=== PATIENT | male | born 1935 | race Caucasian/White ===

== ENCOUNTER 2017-08-18 15:39 | Inpatient (IN) | payer MEDICARE, BC ==
--- NOTE | ~2017-08-18 | PN ---
PATIENT:LINH NELSON MEDICAL RECORD: [id number] LOCATION:[facility] ADMISSION DATE: 08/18/17 PROGRESS NOTE DATE OF SERVICE: 08/20/2017 SUBJECTIVE: No new complaint. OBJECTIVE: Staff is working on placement at the moment. The patient did receive p.r.n. medication last night because of agitation, but is much calmer this morning. On exam, mood is euthymic. Affect is bland and restricted. Speech is terse. Content of thought focuses only on somatic concerns. Sensorium shows no change. ASSESSMENT: No change in diagnosis. PLAN: 1. Continue all current medications. 2. Continue supportive therapy. TRANSINT:[id number] Voice Confirmation ID: [id number] DOCUMENT ID: [id number] PEPPER NAPIER III, MD at 1037 CC: [id number] DICTATION DATE: 08/20/17 1111 PNEUDRAULIC SYSTEMS MECHANIC: 08/20/17 1256 DIS IN 08/21/17 [place] [id number] [place] [address]
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
[2017-08-18 16:33] LABS: BASOPHILS 0.3 % (0-2); EOSINOPHILS 3.3 % (0-7); HEMATOCRIT 37.7 % (42.0-54.0); HEMOGLOBIN 12.1 g/dL (13.5-17.5); IMMATURE GRANULOCYTES 0.3 % (0-5); LYMPHOCYTES 14.5 % (15-50); MCH 30.9 pg (26.0-34.0); MCHC 32.1 g/dL (31.0-37.0); MCV 96.2 fL (80.0-100.0); MEAN PLATELET VOLUME 8.9 fL (7.4-10.4); MONOCYTES 8.4 % (2-11); NEUTROPHILS 73.2 % (40-80); PLATELET COUNT 304 10x3/uL (130-400); RBC 3.92 10x6/uL (4.20-6.10); RDW 12.9 % (11.5-14.5)
[2017-08-18 16:47] LABS: APPEARANCE CLEAR (CLEAR); COLOR YELLOW (YELLOW); NITRITE NEGATIVE (NEGATIVE); PROTEIN NEGATIVE (NEGATIVE)
[2017-08-18 16:48] LABS: BILIRUBIN NEGATIVE (NEGATIVE); GLUCOSE 250 mg/dL (NEGATIVE); KETONE NEGATIVE (NEGATIVE); UROBILINOGEN NORMAL (NORMAL)
[2017-08-18 17:31] LABS: UDS - AMPHET NEGATIVE QUAL (NEGATIVE); UDS - BARB NEGATIVE QUAL (NEGATIVE); UDS - BENZO NEGATIVE QUAL (NEGATIVE); UDS - COCAINE NEGATIVE QUAL (NEGATIVE); UDS - OPIATE NEGATIVE QUAL (NEGATIVE); UDS - PCP NEGATIVE QUAL (NEGATIVE); UDS - THC NEGATIVE QUAL (NEGATIVE)
[2017-08-18 17:33] LABS: ALBUMIN 3.4 g/dL (3.4-5.0); BILIRUBIN - TOTAL 0.2 mg/dL (0.2-1.3); CALCIUM 8.8 mg/dL (8.5-10.1); CARBON DIOXIDE 24.9 mmol/L (21.0-32.0); CREATININE - SERUM 1.1 mg/dL (0.6-1.3); POTASSIUM - SERUM 3.9 mmol/L (3.5-5.1); PROTEIN - SERUM 6.8 g/dL (6.4-8.2)
[2017-08-18] MEDS ORDERED: ARICEPT10 MG PO (20:15)
[2017-08-18] MEDS ORDERED: NAMENDA XR28 MG PO (20:16)
[2017-08-18] MEDS ORDERED: OMEPRAZOLE40 MG PO (20:17)
[2017-08-18] MEDS ORDERED: GLUCOPHAGE500 MG PO (20:17)
[2017-08-18] MEDS ORDERED: ATIVAN0.5 MG PO (20:18)
[2017-08-18] MEDS ORDERED: PRINIVIL20 MG PO (20:18)
[2017-08-18] MEDS ORDERED: SYMBICORT 80-10.2 GM INH (20:19)
[2017-08-18 20:50] VITALS: BP 153/73
[2017-08-18 20:54] LABS: CHOL - HDL RATIO 6.2 ratio (2.3-4.9); LDL-HDL RATIO 3.7 ratio (1.5-3.5); THYROID STIMULATING HORMONE 2.22 uIU/mL (0.36-3.74)
[2017-08-19 05:45] VITALS: BP 153/73; BMI 19.0
[2017-08-19 08:38] VITALS: BP 169/76
[2017-08-19 10:05] VITALS: Wt 63.5 kg
[2017-08-19 22:50] VITALS: BP 179/83
[2017-08-20 06:15] LABS: RAPID PLASMA REAGIN Non Reactive (Non Reactive)
[2017-08-20 07:27] LABS: VITAMIN D 25 HYDROXY 22.2 ng/mL (30.0-100.0)
[2017-08-20 08:18] LABS: FOLATE (FOLIC ACID) - SERUM 13.1 ng/mL (>3.0)
[2017-08-20 09:45] VITALS: BP 126/76
[2017-08-20 19:20] VITALS: BP 140/74
[2017-08-21 09:41] VITALS: BP 152/91
[2017-08-21] MEDS ORDERED: NAMENDA5 MG PO (16:39)
[2017-08-21] MEDS ORDERED: VITAMIN D5000 UNIT PO (16:40)
== END 2017-08-21 17:15 | disposition home or self-care (01) | DRG 57 ==
LOC: D.ER 15:39 → D.PSYCH 19:00
PROVIDERS: Emergency Medicine; Psychiatry & Neurology Psychiatry
DX: G30.1 Alzheimer's disease with late onset (principal); F02.81 Dementia in other diseases classified elsewhere, unspecified severity, with behavioral disturbance; E11.9 Type 2 diabetes mellitus without complications; K21.9 Gastro-esophageal reflux disease without esophagitis; I10 Essential (primary) hypertension; E55.9 Vitamin D deficiency, unspecified

== ENCOUNTER 2017-11-21 12:05 | Inpatient (IN) | payer MEDICARE, BC ==
[~2017-11-21] VITALS: Ht 182.9 cm; Wt 64.1 kg
--- NOTE | ~2017-11-21 | DS ---
PATIENT:LINH NELSON :35 MEDICAL RECORD: [id number] DISCHARGE SUMMARY ADMISSION DATE: 11/21/17 DISCHARGE DATE: 12/03/17 IDENTIFYING DATA: The patient is 82 years old and he was admitted to the hospital on a voluntary basis because of agitation. He initially presented to the Emergency Room and was subsequently found to be quite confused. His told the Emergency Room doctor that she was afraid of him and could not handle his behaviors. He had been tearing up furniture and urinating on the floor. He has been wandering away from home and becoming quite confused. He was previously here about 3 months prior to this and at that time was discharged at the request of the family without being adequately evaluated. HOSPITAL COURSE: The patient was admitted to the hospital and comprehensively evaluated from both a medical, psychological, and social standpoint. He was found to have a dementia that was advanced. He was treated with both mood stabilizing and memory enhancing medications and did show improvement both from the medications and the therapeutic structured environment. He was subsequently transitioned to a setting where he can get 24-hour a day care. DISCHARGE DIAGNOSES: AXIS I: Senile dementia of the Alzheimer's type with behavioral disturbances. AXIS II: None. AXIS III: Diabetes, hypertension, gastroesophageal reflux disease, chronic obstructive pulmonary disease, asthma, and hyperlipidemia. AXIS IV: Moderate stressors. AXIS V: Global assessment of functioning is 35. PLAN: At the time of discharge, the patient was in good behavioral control with limited insight about his condition. He was not representing an acute risk to himself or others. His long-term prognosis is guarded. TRANSINT:[id number] Voice Confirmation ID: [id number] DOCUMENT ID: [id number] HORACIO GOODMAN MD at 1034 CC: [id number] DICTATION DATE: 12/11/17 1019 CLUTCH ASSEMBLER: 12/11/17 1231 DIS IN 12/03/17 [address] [address] [place] [address]
--- NOTE | ~2017-11-21 | PN ---
PATIENT:LINH NELSON MEDICAL RECORD: [id number] LOCATION:[facility] ADMISSION DATE: 11/21/17 PROGRESS NOTE DATE OF SERVICE: 11/29/2017 SUBJECTIVE: The patient's case was discussed with staff. He has no new complaint. OBJECTIVE: The patient is in good behavioral control with limited insight about his condition. He tolerates his medicines well. He is not sleeping or eating very well. I do plan to give him Megace to assist with appetite stimulation. I think his long-term prognosis is guarded. He has been evaluated by hospice and denied admission. They say that he has not lost enough weight even though he is 6 feet tall and only weighs 141 pounds. I am a little surprised that they are refusing to take him, but if they do not think they can make him meet criteria for hospice, I suppose that is their call and not mine, so obviously I will have to look for other options and at this point, a correction placement is being sought. TRANSINT:[id number] Voice Confirmation ID: [id number] DOCUMENT ID: [id number] HORACIO GOODMAN MD at 1452 CC: [id number] DICTATION DATE: 11/29/17 1500 FURNACE FIRER: 11/29/17 1535 ADM IN [facility] [address] [place] [address]
--- NOTE | ~2017-11-21 | PN ---
PATIENT:LINH NELSON MEDICAL RECORD: [id number] LOCATION:[facility] ADMISSION DATE: 11/21/17 PROGRESS NOTE DATE OF SERVICE: 11/25/2017 SUBJECTIVE: The patient's case was discussed with staff. He has no new complaint. OBJECTIVE: The patient is in good behavioral control with limited insight about his condition. He does tolerate his medicines well. Eye contact is fair. Concentration is fair. ASSESSMENT: No change in diagnoses. PLAN: The patient was significantly agitated last night and did require some p.r.n. medication. He has no recollection of this event. He continues to be significantly agitated, although I do think the Ultram has helped. I am going to increase the dose to 50 mg four times a day based on the presumption that he is having discomfort that he is unable to express and it is being manifest as agitation. TRANSINT:[id number] Voice Confirmation ID: [id number] DOCUMENT ID: [id number] HORACIO GOODMAN MD at 1212 CC: [id number] DICTATION DATE: 11/25/17 1249 STRATEGY LEAD: 11/25/17 1302 ADM IN [facility] [address] [place] [address]
--- NOTE | ~2017-11-21 | PN ---
PATIENT:LINH NELSON MEDICAL RECORD: [id number] LOCATION:[facility] [place] ADMISSION DATE: 11/21/17 PROGRESS NOTE DATE OF SERVICE: 11/27/2017 SUBJECTIVE: The patient's case was discussed with staff. He has no new complaint. OBJECTIVE: The patient is in good behavioral control with limited insight about his condition. He generally tolerates his medicines well. He continues to not sleep well, but is eating a little better. ASSESSMENT: No change in diagnoses. PLAN: Supportive and educational interventions were made. The patient will have his trazodone increased slightly to assist with sleep consolidation. TRANSINT:[id number] Voice Confirmation ID: [id number] DOCUMENT ID: [id number] HORACIO GOODMAN MD at 1445 CC: [id number] DICTATION DATE: 11/27/17 1001 COOKER HELPER: 11/27/17 1156 ADM IN [place] [id number] [place] [id number]
--- NOTE | ~2017-11-21 | PN ---
PATIENT:LINH NELSON MEDICAL RECORD: [id number] LOCATION:[facility] [place] ADMISSION DATE: 11/21/17 PROGRESS NOTE DATE OF SERVICE: 11/30/2017 SUBJECTIVE: The patient's case was discussed with staff. He has no new complaint. OBJECTIVE: The patient is very confused and at times agitated. He still is not eating well. ASSESSMENT: No change in diagnoses. PLAN: The patient will be given Megace to assist with appetite stimulation. His long-term prognosis is guarded. His weight loss cannot continue without serious adverse effects. TRANSINT:[id number] Voice Confirmation ID: [id number] DOCUMENT ID: [id number] HORACIO GOODMAN MD at 1339 CC: [id number] DICTATION DATE: 11/30/17 1504 MYSQL DBA: 11/30/17 1510 ADM IN [id number] [place] [address]
--- NOTE | ~2017-11-21 | PN ---
PATIENT:LINH NELSON MEDICAL RECORD: [id number] LOCATION:[facility] ADMISSION DATE: 11/21/17 PROGRESS NOTE DATE OF SERVICE: 11/24/2017 SUBJECTIVE: The patient's case was discussed with staff. He has no new complaint. OBJECTIVE: The patient is disorganized and severely impaired cognitively. He has extremely poor insight about his situation. ASSESSMENT: No change in diagnoses. PLAN: Brief supportive and educational interventions were made. The patient will have his Trilafon increased to 4 mg daily. His long-term prognosis is guarded. TRANSINT:[id number] Voice Confirmation ID: [id number] DOCUMENT ID: [id number] HORACIO GOODMAN MD at 1224 CC: [id number] DICTATION DATE: 11/24/17 1047 RICE DRYER MECHANIC: 11/24/17 1208 ADM IN [id number] [place] [address]
--- NOTE | ~2017-11-21 | PSY ---
PATIENT NAME:LINH NELSON MEDICAL RECORD: [id number] : 35 LOCATION:[facility] ADMISSION DATE: 11/21/17 ACCOUNT: [id number] PSYCHIATRIC EVALUATION DATE OF EVALUATION: 11/22/17 IDENTIFYING DATA: The patient is 82 years old and he was admitted to the hospital on a voluntary basis because of agitation. CHIEF COMPLAINT: None. HISTORY OF PRESENT ILLNESS: The patient initially presented to the Emergency Room with the complaints that he was agitated and confused. He does not have much in the way of recollection for this. His told the Emergency Room doctor that she could not handle him and that she was afraid of him. Apparently, he has been tearing up furniture and urinating on the floor. He wanders away from home at night and becomes very confused. He was previously here about 3 months ago. He was discharged at the request of the family at that time. PAST MEDICAL HISTORY: Significant for diabetes, hypertension, asthma. PAST PSYCHIATRIC HISTORY: Significant for an established diagnosis of dementia. FAMILY HISTORY: Unknown. ALLERGIES: BENADRYL. MEDICATIONS: Current medications include Glucophage, Prinivil, Aricept, Symbicort, and Prilosec. SOCIAL HISTORY: The patient is . He is a nonsmoker and nondrinker. He does have a history of good social and occupational functioning prior to becoming demented. MENTAL STATUS EXAMINATION: The patient is awake, alert and oriented to person and somewhat to place, but not to time or situation. His mood is euthymic. His affect appropriate. Thought processes are circumstantial. Memory, concentration, and abstraction abilities are moderately impaired and he denies that he would seek to harm himself or others as well as active psychotic symptoms. ASSETS: Supportive family members. LIABILITIES: Limited insight. DIAGNOSTIC IMPRESSION: AXIS I: Senile dementia of the Alzheimer's type with behavioral disturbances. AXIS II: None. AXIS III: Diabetes, hypertension, gastroesophageal reflux disease, chronic obstructive pulmonary disease, asthma and hyperlipidemia. AXIS IV: Moderate stressors. AXIS V: Global assessment of functioning is 30. PLAN: At this time, the patient is admitted to the hospital secondary to agitated behavior associated with a dementing illness. He will be treated with both mood stabilizing and memory enhancing medications. His long-term prognosis is guarded. TRANSINT:[id number] Voice Confirmation ID: [id number] DOCUMENT ID: [id number] HORACIO GOODMAN MD at 1456 CC: [id number] DICTATION DATE: 11/22/17 1438 MIXED LIVESTOCK FARMER: 11/22/17 1533 ADM IN [place] [id number] [place] [id number]
--- NOTE | ~2017-11-21 | PN ---
PATIENT:LINH NELSON MEDICAL RECORD: [id number] LOCATION:[facility] ADMISSION DATE: 11/21/17 PROGRESS NOTE DATE OF SERVICE: 12/01/2017 SUBJECTIVE: The patient's case was discussed with staff. He has no new complaint. OBJECTIVE: The patient denies intent to harm himself or others. He generally tolerates his medicines well. Eye contact is fair. ASSESSMENT: No change in diagnoses. PLAN: The patient is not sleeping or eating well. He has been started on Megace to assist with appetite stimulation. In addition to this, his trazodone has been increased to 100 mg at bedtime and hopefully that will assist with his sleep consolidation, improving. His long-term prognosis is guarded. He has been declined by hospice despite the conditions described above. TRANSINT:[id number] Voice Confirmation ID: [id number] DOCUMENT ID: [id number] HORACIO GOODMAN MD at 1438 CC: [id number] DICTATION DATE: 12/01/17 1401 DIRECTOR INTERNATIONAL: 12/01/17 1419 ADM IN [facility] [address] [place] [address]
--- NOTE | ~2017-11-21 | PN ---
PATIENT:LINH NELSON MEDICAL RECORD: [id number] LOCATION:[facility] ADMISSION DATE: 11/21/17 PROGRESS NOTE DATE OF SERVICE: 12/03/2017 SUBJECTIVE: The patient does not make a new complaint. OBJECTIVE: The patient has continued to do poorly. He did have an elevated white count. He is also somewhat dehydrated and is on intravenous fluids. Stool and urine cultures, however, were negative. He is having great difficulty swallowing. The patient was evaluated by hospice nurse today. He will be transferred to inpatient hospice later today. On exam, mood is euthymic. Affect very constricted. Speech minimal. Content of thought focuses only on somatic concerns. Sensorium shows no change. ASSESSMENT: No change in diagnosis. PLAN: The patient will be transferred for inpatient hospice later today. TRANSINT:[id number] Voice Confirmation ID: [id number] DOCUMENT ID: [id number] PEPPER NAPIER III, MD at 1959 CC: [id number] DICTATION DATE: 12/03/17 1114 LARRIMAN HELPER: 12/03/17 1121 DIS IN 12/03/[address] [facility] [address] [place] [address]
--- NOTE | ~2017-11-21 | PN ---
PATIENT:LINH NELSON MEDICAL RECORD: [id number] LOCATION:[facility] ADMISSION DATE: 11/21/17 PROGRESS NOTE DATE OF SERVICE: 12/02/2017 SUBJECTIVE: The patient's case was discussed with staff. He has no new complaint. OBJECTIVE: The patient is awake but not responding to me in any meaningful way. He is oriented to person, but when asked questions, he mumbles incoherently. He has not been eating well. Some baseline labs have been drawn to see if he is becoming dehydrated or has an infection or some other medical issue that can be addressed. Clearly, his psychiatric medication regimen is not helping or working and it may be that nothing is going to help or work, but I am going to take him off of his current list of psychoactive medications and allow those to exit his system for few days and then we will try a different regimen or combination. I still believe he is in need of skilled nursing placement and hospice, but he has been denied for hospice. ASSESSMENT: No change in diagnoses. PLAN: As described above. The patient's psychoactive medications will be stopped and he will be monitored for clinical changes. TRANSINT:[id number] Voice Confirmation ID: [id number] DOCUMENT ID: [id number] HORACIO GOODMAN MD at 1617 CC: [id number] DICTATION DATE: 12/02/17 1449 SUPERVISOR TUMBLING AND ROLLING: 12/02/17 1559 DIS IN 12/03/17 [place] [id number] [place] [address]
--- NOTE | ~2017-11-21 | PN ---
PATIENT:LINH NELSON MEDICAL RECORD: [id number] LOCATION:[facility] ADMISSION DATE: 11/21/17 PROGRESS NOTE DATE OF SERVICE: 11/23/2017 SUBJECTIVE: The patient's case was discussed with staff. He has no new complaint. OBJECTIVE: The patient is in good behavioral control with limited insight about his condition. He does tolerate his medicines well. ASSESSMENT: No change in diagnoses. PLAN: Supportive and educational interventions were made. Prison prognosis is guarded. The patient has been very agitated. He is not eating or sleeping adequately. I am going to give him a low dose of Ultram based on the clinical suspicion that perhaps he is experiencing some discomfort that he cannot adequately express and that is the reason for his agitation. If this theory is correct, he should show dramatic improvement in the next day. If it is not, I plan to completely change his scheduled psychotropic medication list. TRANSINT:[id number] Voice Confirmation ID: [id number] DOCUMENT ID: [id number] HORACIO GOODMAN MD at 1037 CC: [id number] DICTATION DATE: 11/23/17 1514 MEMBER OF TECHNICAL STAFF: 11/23/17 1600 ADM IN [facility] [address] [place] [address]
--- NOTE | ~2017-11-21 | PN ---
PATIENT:LINH NELSON MEDICAL RECORD: [id number] LOCATION:[facility] ADMISSION DATE: 11/21/17 PROGRESS NOTE DATE OF SERVICE: 11/26/2017 SUBJECTIVE: The patient's case was discussed with staff. He has no new complaint. OBJECTIVE: The patient denies intent to harm himself or others. He generally tolerates his medicines well. Eye contact is fair. Current medicines and therapies have been reviewed. Hospice is evaluating the patient for possible comfort care measures. I think given the advanced nature of his dementia that is perfectly reasonable. ASSESSMENT: No change in diagnoses. PLAN: As mentioned above, hospice is going to see the patient. Long-term prognosis is modest at best. He does appear more comfortable and less agitated today. He still is not sleeping and I am going to prescribe trazodone at a dose of 50 mg to assist with that. TRANSINT:[id number] Voice Confirmation ID: [id number] DOCUMENT ID: [id number] HORACIO GOODMAN MD at 0949 CC: [id number] DICTATION DATE: 11/26/17 1231 SHIPPING MANAGER: 11/26/17 [address] [facility] [address] [place] [address]
[~2017-11-21 12:05] MED LIST: ARICEPT10 MG PO; ATIVAN0.5 MG PO; GLUCOPHAGE500 MG PO; NAMENDA XR28 MG PO; NAMENDA5 MG PO; OMEPRAZOLE40 MG PO; PRINIVIL20 MG PO; SYMBICORT 80-10.2 GM INH; VITAMIN D5000 UNIT PO
[2017-11-21 13:44] LABS: BASOPHILS 0.2 % (0-2); EOSINOPHILS 1.3 % (0-7); HEMATOCRIT 34.9 % (42.0-54.0); HEMOGLOBIN 11.5 g/dL (13.5-17.5); IMMATURE GRANULOCYTES 0.2 % (0-5); LYMPHOCYTES 9.9 % (15-50); MCH 31.2 pg (26.0-34.0); MCV 94.6 fL (80.0-100.0); MEAN PLATELET VOLUME 8.7 fL (7.4-10.4); MONOCYTES 9.6 % (2-11); NEUTROPHILS 78.8 % (40-80); PLATELET COUNT 277 10x3/uL (130-400); RBC 3.69 10x6/uL (4.20-6.10); RDW 12.9 % (11.5-14.5)
[2017-11-21 13:59] LABS: ALBUMIN 3.4 g/dL (3.4-5.0); ALKALINE PHOSPHATASE 73 U/L (46-116); ALT (SGPT) 13 U/L (10-68); APPEARANCE CLEAR (CLEAR); BILIRUBIN NEGATIVE (NEGATIVE); BILIRUBIN - TOTAL 0.44 mg/dL (0.2-1.3); CALC OSMOLALITY 291 mosm/kg (275-300); CALCIUM 9.1 mg/dL (8.5-10.1); CARBON DIOXIDE 28.1 mmol/L (21.0-32.0); CHLORIDE - SERUM 106 mmol/L (98-107); COLOR YELLOW (YELLOW); CREATININE - SERUM 1.1 mg/dL (0.6-1.3); GLUCOSE 50 mg/dL (NEGATIVE); KETONE NEGATIVE (NEGATIVE); NITRITE NEGATIVE (NEGATIVE); POTASSIUM - SERUM 3.7 mmol/L (3.5-5.1); PROTEIN NEGATIVE (NEGATIVE); PROTEIN - SERUM 6.5 g/dL (6.4-8.2); SODIUM 143 mmol/L (136-145); UREA NITROGEN 28 mg/dL (7-18); UROBILINOGEN NORMAL (NORMAL); eGFR NON AFRICAN AMERICAN 68 mL/min (90-120)
[2017-11-21 14:01] LABS: BACTERIA FEW /hpf (NONE SEEN); EPITHELIAL CELLS 0-5 /hpf (0-5); RED CELLS - URINE 0-5 /hpf (0-5); WHITE CELLS - URINE 0-5 /hpf (0-5)
[2017-11-21 14:08] LABS: CREATINE KINASE 72 UL (21-232); LIPASE 69 U/L (73-393); PRO BNP 713 pg/mL (0-450); TROPONIN-I < 0.017 ng/mL (0.000-0.060)
[2017-11-21 14:30] LABS: GLUCOSE 125 mg/dL (74-106)
[2017-11-21 15:36] VITALS: BP 142/93
[2017-11-21 17:55] VITALS: BP 167/82
[2017-11-21 19:26] VITALS: BP 167/82
[2017-11-22] MEDS ORDERED: SYMBICORT 16010.2 GM INH (00:49)
[2017-11-22 07:00] VITALS: BP 164/77
[2017-11-22 07:29] LABS: CHOL - HDL RATIO 5.3 ratio (2.3-4.9); LDL-HDL RATIO 3.9 ratio (1.5-3.5); THYROID STIMULATING HORMONE 3.49 uIU/mL (0.36-3.74)
[2017-11-22] MEDS ORDERED: OMEPRAZOLE40 MG PO (07:31)
[2017-11-22 09:51] VITALS: BMI 19.1
[2017-11-22 14:03] VITALS: Ht 182.9 cm; Wt 64.1 kg
[2017-11-23 07:27] LABS: FOLATE (FOLIC ACID) - SERUM 16.6 ng/mL (>3.0)
[2017-11-23 07:56] VITALS: BP 174/82
[2017-11-23 19:55] VITALS: BP 133/73
[2017-11-24 09:28] VITALS: BP 154/67
[2017-11-24 19:33] VITALS: BP 120/71
[2017-11-24 19:41] VITALS: BP 176/88
[2017-11-25 08:30] VITALS: BP 179/93
[2017-11-25 21:13] VITALS: BP 162/94
[2017-11-26 08:30] VITALS: BP 162/99
[2017-11-26 20:02] VITALS: BP 114/65
[2017-11-27 08:16] VITALS: BP 156/76
[2017-11-27 10:19] VITALS: BP 156/76
[2017-11-27 19:58] VITALS: BP 145/86
[2017-11-28 07:00] VITALS: BP 114/55
[2017-11-28 20:26] VITALS: BP 103/54
[2017-11-29 07:00] VITALS: BP 169/85
[2017-11-29 19:58] VITALS: BP 158/70
[2017-11-30 10:03] VITALS: BP 123/67
[2017-12-01 00:11] VITALS: BP 106/55
[2017-12-01 08:00] VITALS: BP 126/57
[2017-12-01 20:00] VITALS: BP 130/60
[2017-12-02 09:39] VITALS: BP 144/67
[2017-12-02 14:12] LABS: BASOPHILS 0.1 % (0-2); EOSINOPHILS 0.1 % (0-7); HEMATOCRIT 39.8 % (42.0-54.0); HEMOGLOBIN 13.2 g/dL (13.5-17.5); IMMATURE GRANULOCYTES 0.4 % (0-5); LYMPHOCYTES 4.5 % (15-50); MCH 31.7 pg (26.0-34.0); MCHC 33.2 g/dL (31.0-37.0); MCV 95.4 fL (80.0-100.0); MEAN PLATELET VOLUME 9.9 fL (7.4-10.4); MONOCYTES 7.7 % (2-11); NEUTROPHILS 87.2 % (40-80); RBC 4.17 10x6/uL (4.20-6.10); RDW 13.6 % (11.5-14.5); WBC 19.6 10x3/uL (4.8-10.8)
[2017-12-02 14:17] LABS: PLATELET COUNT 389 10x3/uL (130-400)
[2017-12-02 14:28] LABS: ANION GAP 15.4 mmol/L (8-16); CALCIUM 10.1 mg/dL (8.5-10.1); CARBON DIOXIDE 25.7 mmol/L (21.0-32.0); CREATININE - SERUM 3.2 mg/dL (0.6-1.3); POTASSIUM - SERUM 5.1 mmol/L (3.5-5.1)
[2017-12-02 18:08] LABS: APPEARANCE CLEAR (CLEAR); COLOR YELLOW (YELLOW)
[2017-12-02 18:09] LABS: BILIRUBIN NEGATIVE (NEGATIVE); GLUCOSE NEGATIVE (NEGATIVE); KETONE NEGATIVE (NEGATIVE); NITRITE NEGATIVE (NEGATIVE); PROTEIN NEGATIVE (NEGATIVE); UROBILINOGEN NORMAL (NORMAL)
[2017-12-02 22:21] VITALS: BP 144/63
[2017-12-03 06:36] LABS: BASOPHILS 0.2 % (0-2); EOSINOPHILS 0.2 % (0-7); HEMATOCRIT 41.6 % (42.0-54.0); HEMOGLOBIN 13.8 g/dL (13.5-17.5); IMMATURE GRANULOCYTES 0.2 % (0-5); LYMPHOCYTES 6.7 % (15-50); MCH 31.7 pg (26.0-34.0); MCHC 33.2 g/dL (31.0-37.0); MCV 95.4 fL (80.0-100.0); MEAN PLATELET VOLUME 9.7 fL (7.4-10.4); NEUTROPHILS 85.7 % (40-80); PLATELET COUNT 411 10x3/uL (130-400); RBC 4.36 10x6/uL (4.20-6.10); RDW 13.6 % (11.5-14.5); WBC 19.1 10x3/uL (4.8-10.8)
[2017-12-03 06:46] LABS: ANION GAP 20.2 mmol/L (8-16); CALCIUM 9.5 mg/dL (8.5-10.1); CARBON DIOXIDE 21.7 mmol/L (21.0-32.0); CREATININE - SERUM 2.7 mg/dL (0.6-1.3); POTASSIUM - SERUM 4.9 mmol/L (3.5-5.1)
[2017-12-03 10:47] VITALS: BP 141/76
[2017-12-03] MEDS ORDERED: MEGACE40 MG PO (11:05)
[2017-12-03] MEDS ORDERED: LOPERAMIDE HCL2 MG PO (11:07)
[2017-12-03] MEDS ORDERED: CALMOSEPTINE OI71 GM TOPICAL (11:07)
[2017-12-03] MEDS ORDERED: VITAMIN D5000 UNIT PO (11:07)
== END 2017-12-03 16:30 | disposition home health service (06) | DRG 57 ==
LOC: D.ER 12:05 → D.PSYCH 15:52
PROVIDERS: Family Medicine; Psychiatry & Neurology Psychiatry
DX: G30.1 Alzheimer's disease with late onset (principal); F02.81 Dementia in other diseases classified elsewhere, unspecified severity, with behavioral disturbance; E11.9 Type 2 diabetes mellitus without complications; I10 Essential (primary) hypertension; K21.9 Gastro-esophageal reflux disease without esophagitis; J44.9 Chronic obstructive pulmonary disease, unspecified; E78.5 Hyperlipidemia, unspecified; F41.9 Anxiety disorder, unspecified; E55.9 Vitamin D deficiency, unspecified; B35.1 Tinea unguium